=== PATIENT | female | born 1960 | race Asian ===

== ENCOUNTER 2017-06-24 00:14 | Inpatient (IN) | payer OTHER ==
[~2017-06-24] VITALS: Ht 182.9 cm; Wt 105.1 kg
[2017-06-24] MEDS ORDERED: SODIUM CHLORIDE FLUSH 10ML SYR IVF ONE (02:00)
[2017-06-24] MEDS ORDERED: SODIUM CHLORIDE 0.9% 1,000ML IVBOLUS ONE ×2 (02:00→03:00)
[2017-06-24] MEDS ORDERED: CLINDAMYCIN PMX 600MG/50ML 50 ML IVPB ONE (02:00)
[2017-06-24 02:03] LABS: HEMATOCRIT 35.5 % (34.6-47.8); HEMOGLOBIN 11.7 g/dL (11.7-16.4); WHITE BLOOD COUNT 26.3 x10^3/uL (3.4-10)
[2017-06-24] MEDS ORDERED: CLINDAMYCIN PMX 600MG/50ML 50 ML ONE (02:10)
[2017-06-24 02:14] LABS: BLOOD UREA NITROGEN 46 mg/dL (7-18)
[2017-06-24 02:18] LABS: ASPARTATE AMINO TRANSFERASE 35 U/L (15-37); DIFF TOTAL CELLS COUNTED 100 CELL DIFF
[2017-06-24 02:29] LABS: VERIFY COUNTS? YES
[2017-06-24] MEDS ORDERED: SODIUM CHLORIDE 0.9% 1,000 ML IV ONE (02:34)
[2017-06-24] MEDS ORDERED: CEFTRIAXONE PMX 1GM/50ML 50 ML ONE (02:52)
[2017-06-24] MEDS ORDERED: CEFTRIAXONE PMX 1GM/50ML 50 ML IV ONE (03:00)
[2017-06-24] MEDS ORDERED: LIDOCAINE 1%, 20ML ONE (03:12)
[2017-06-24 05:23] VITALS: BP 164/80
[2017-06-24] MEDS ORDERED: TEMAZEPAM 15 MG CAPSULE PO PRN (05:30)
[2017-06-24] MEDS: HEPARIN 5,000 UNITS/ML, 1ML SQ SCH ×3 (05:46→20:10)
[2017-06-24] MEDS: SODIUM CHLORIDE 0.9% 1,000 ML IV SCH ×3 (05:46→21:51)
[2017-06-24] MEDS: INSULIN ASPART 100 UNITS/ML, PEN SQ-INSULIN SCH ×4 (08:22→20:10)
[2017-06-24 08:32] VITALS: BP 170/73
[2017-06-24] MEDS: LACTOBACILLUS 1GM/ PACKET PO SCH ×3 (08:34→20:10)
[2017-06-24] MEDS: CLINDAMYCIN PMX 600MG/50ML 50 ML IV SCH ×2 (11:02→17:57)
[2017-06-24 14:00] VITALS: BP 143/74
[2017-06-24] MEDS ORDERED: ATOR20TA PO (16:35)
[2017-06-24] MEDS ORDERED: GLIP10TA20 PO (16:35)
[2017-06-24] MEDS ORDERED: LISI-170 PO (16:35)
[2017-06-24] MEDS: ACETAMINOPHEN 325 MG TABLET PO PRN (16:57)
[2017-06-24 19:01] VITALS: BP 145/76
[2017-06-25] MEDS: ACETAMINOPHEN 325 MG TABLET PO PRN ×2 (02:08→21:39)
[2017-06-25] MEDS: CLINDAMYCIN PMX 600MG/50ML 50 ML IV SCH ×2 (02:08→10:14)
[2017-06-25 02:46] VITALS: BP 152/79
[2017-06-25] MEDS ORDERED: CEFTRIAXONE PMX 1GM/50ML 50 ML IV SCH (03:00)
[2017-06-25 05:16] LABS: BLOOD UREA NITROGEN 41 mg/dL (7-18)
[2017-06-25 05:17] LABS: HEMATOCRIT 29.2 % (34.6-47.8); HEMOGLOBIN 9.6 g/dL (11.7-16.4); WHITE BLOOD COUNT 29.6 x10^3/uL (3.4-10)
[2017-06-25 05:21] LABS: ASPARTATE AMINO TRANSFERASE 24 U/L (15-37)
[2017-06-25 05:37] LABS: DIFF TOTAL CELLS COUNTED 100 CELL DIFF
[2017-06-25 05:39] LABS: VERIFY COUNTS? YES
[2017-06-25] MEDS: SODIUM CHLORIDE 0.9% 1,000 ML IV SCH ×2 (05:47→11:27)
[2017-06-25] MEDS: HEPARIN 5,000 UNITS/ML, 1ML SQ SCH ×3 (05:48→20:52)
[2017-06-25 06:48] VITALS: BP 158/83
[2017-06-25] MEDS: LACTOBACILLUS 1GM/ PACKET PO SCH ×3 (07:58→20:49)
[2017-06-25] MEDS: INSULIN ASPART 100 UNITS/ML, PEN SQ-INSULIN SCH ×4 (07:58→21:00)
[2017-06-25 12:15] VITALS: BP 142/70
[2017-06-25] MEDS ORDERED: VANCOMYCIN PER PHARMACY MC PRN (14:00)
[2017-06-25] MEDS ORDERED: PHARMACOKINETIC CONSULTATION MC ONE (14:30)
[2017-06-25] MEDS ORDERED: PHARMACOKINETIC MONITORING MC PRN (14:30)
[2017-06-25] MEDS: CEFTRIAXONE PMX 1GM/50ML 50 ML IV SCH (14:34)
[2017-06-25] MEDS ORDERED: VANCOMYCIN 2,000 MG in SODIUM CHLORIDE 0.9% 500 ML IV ONE (15:00)
[2017-06-25] MEDS: INSULIN DETEMIR 100 UNITS/ML, PEN SQ-INSULIN SCH (16:39)
[2017-06-25 19:12] VITALS: BP 170/75
[2017-06-26 02:24] VITALS: BP 168/81
[2017-06-26] MEDS: CEFTRIAXONE PMX 1GM/50ML 50 ML IV SCH (03:04)
[2017-06-26] MEDS: SODIUM CHLORIDE 0.9% 1,000 ML IV SCH ×3 (03:05→16:13)
[2017-06-26] MEDS: HEPARIN 5,000 UNITS/ML, 1ML SQ SCH ×3 (05:30→21:02)
[2017-06-26 05:39] LABS: HEMATOCRIT 28.4 % (34.6-47.8); HEMOGLOBIN 9.4 g/dL (11.7-16.4); WHITE BLOOD COUNT 25.4 x10^3/uL (3.4-10)
[2017-06-26 05:52] LABS: BLOOD UREA NITROGEN 38 mg/dL (7-18)
[2017-06-26 06:27] LABS: HIV 1&2 ANTIBODY SCREEN Nonreactive (Nonreactive); HIV-1 p24 ANTIGEN Nonreactive (Nonreactive)
[2017-06-26 07:22] VITALS: BP_SYST 170; BP_SYST 189; BP_DIAS 74; BP_DIAS 77
[2017-06-26] MEDS: INSULIN ASPART 100 UNITS/ML, PEN SQ-INSULIN SCH ×4 (07:35→21:03)
[2017-06-26] MEDS: INSULIN DETEMIR 100 UNITS/ML, PEN SQ-INSULIN SCH ×2 (09:11→18:14)
[2017-06-26] MEDS: LACTOBACILLUS 1GM/ PACKET PO SCH ×3 (09:13→21:02)
[2017-06-26] MEDS ORDERED: CEFTAROLINE 600 MG in SODIUM CHLORIDE 0.9% 100 ML IV SCH (12:00)
[2017-06-26] MEDS: CEFTAROLINE 400 MG in SODIUM CHLORIDE 0.9% 100 ML IV SCH (12:39)
[2017-06-26 15:34] VITALS: BP 184/80
[2017-06-26] MEDS: DOCUSATE 100 MG CAPSULE PO SCH (16:08)
[2017-06-26] MEDS: AMLODIPINE 5 MG TABLET PO SCH (16:13)
[2017-06-26] MEDS: ACETAMINOPHEN 325 MG TABLET PO PRN (18:20)
[2017-06-26 20:00] VITALS: BP_SYST 188; BP_SYST 193; BP_DIAS 75; BP_DIAS 78
[2017-06-26 20:22] VITALS: BP 188/78
[2017-06-26] MEDS: hydrALAzine 20 MG/ML, 1ML IV PRN (20:24)
[2017-06-26 21:10] VITALS: BP 182/74
[2017-06-27] MEDS: CEFTAROLINE 400 MG in SODIUM CHLORIDE 0.9% 100 ML IV SCH ×2 (00:28→12:12)
[2017-06-27 02:00] VITALS: BP 150/73
[2017-06-27 05:24] VITALS: BP 188/90
[2017-06-27] MEDS: hydrALAzine 20 MG/ML, 1ML IV PRN (05:26)
[2017-06-27] MEDS: HEPARIN 5,000 UNITS/ML, 1ML SQ SCH ×3 (05:26→21:46)
[2017-06-27 05:35] LABS: HEMATOCRIT 31.6 % (34.6-47.8); HEMOGLOBIN 10.4 g/dL (11.7-16.4); WHITE BLOOD COUNT 20.3 x10^3/uL (3.4-10)
[2017-06-27 05:55] LABS: BLOOD UREA NITROGEN 31 mg/dL (7-18)
[2017-06-27 06:12] VITALS: BP 169/78
[2017-06-27 06:32] LABS: DIFF TOTAL CELLS COUNTED 100 CELL DIFF
[2017-06-27 06:53] VITALS: BP 166/80
[2017-06-27 07:05] LABS: VERIFY COUNTS? YES
[2017-06-27] MEDS: INSULIN ASPART 100 UNITS/ML, PEN SQ-INSULIN SCH ×4 (08:18→21:00)
[2017-06-27] MEDS: INSULIN DETEMIR 100 UNITS/ML, PEN SQ-INSULIN SCH ×2 (08:19→16:49)
[2017-06-27] MEDS: SODIUM CHLORIDE 0.9% 1,000 ML IV SCH ×2 (08:21→16:00)
[2017-06-27] MEDS: LACTOBACILLUS 1GM/ PACKET PO SCH ×3 (08:21→21:43)
[2017-06-27] MEDS: AMLODIPINE 5 MG TABLET PO SCH ×2 (08:21→21:43)
[2017-06-27] MEDS: DOCUSATE 100 MG CAPSULE PO SCH ×2 (08:21→21:43)
[2017-06-27] MEDS: ACETAMINOPHEN 325 MG TABLET PO PRN (12:43)
[2017-06-27 14:26] VITALS: BP 159/83
[2017-06-27 19:25] VITALS: BP 155/67
[2017-06-28] MEDS: ACETAMINOPHEN 325 MG TABLET PO PRN ×2 (00:06→19:58)
[2017-06-28] MEDS: CEFTAROLINE 400 MG in SODIUM CHLORIDE 0.9% 100 ML IV SCH ×2 (00:07→12:51)
[2017-06-28 02:59] VITALS: BP 179/83
[2017-06-28] MEDS: hydrALAzine 20 MG/ML, 1ML IV PRN (03:34)
[2017-06-28] MEDS: HEPARIN 5,000 UNITS/ML, 1ML SQ SCH ×3 (05:47→20:00)
[2017-06-28 06:26] VITALS: BP 174/83
[2017-06-28 07:45] LABS: HEMATOCRIT 32.2 % (34.6-47.8); HEMOGLOBIN 10.6 g/dL (11.7-16.4); WHITE BLOOD COUNT 20.6 x10^3/uL (3.4-10)
[2017-06-28 07:57] LABS: BLOOD UREA NITROGEN 26 mg/dL (7-18)
[2017-06-28] MEDS: AMLODIPINE 5 MG TABLET PO SCH ×2 (09:00→19:58)
[2017-06-28] MEDS: LACTOBACILLUS 1GM/ PACKET PO SCH ×3 (09:00→19:58)
[2017-06-28] MEDS: DOCUSATE 100 MG CAPSULE PO SCH ×2 (09:00→19:58)
[2017-06-28] MEDS: INSULIN DETEMIR 100 UNITS/ML, PEN SQ-INSULIN SCH ×2 (09:29→16:22)
[2017-06-28] MEDS: INSULIN ASPART 100 UNITS/ML, PEN SQ-INSULIN SCH ×4 (09:30→20:02)
[2017-06-28 10:10] LABS: DIFF TOTAL CELLS COUNTED 100 CELL DIFF
[2017-06-28 11:03] LABS: VERIFY COUNTS? YES
[2017-06-28] MEDS: ONDANSETRON 2MG/ML, 2ML IVPush PRN (13:25)
[2017-06-28 14:30] VITALS: BP_SYST 129; BP_SYST 187; BP_DIAS 70
[2017-06-28 19:24] VITALS: BP 165/75
[2017-06-29] MEDS ORDERED: CEFTAROLINE 600 MG in SODIUM CHLORIDE 0.9% 100 ML IV SCH
[2017-06-29] MEDS: ONDANSETRON 2MG/ML, 2ML IVPush PRN (00:32)
[2017-06-29 02:58] VITALS: BP 171/75
[2017-06-29] MEDS: HEPARIN 5,000 UNITS/ML, 1ML SQ SCH ×4 (05:30→20:42)
[2017-06-29 06:15] LABS: HEMATOCRIT 32.8 % (34.6-47.8); HEMOGLOBIN 10.8 g/dL (11.7-16.4); WHITE BLOOD COUNT 20.4 x10^3/uL (3.4-10)
[2017-06-29 06:32] LABS: DIFF TOTAL CELLS COUNTED 100 CELL DIFF
[2017-06-29 06:38] LABS: BLOOD UREA NITROGEN 25 mg/dL (7-18)
[2017-06-29 06:50] LABS: VERIFY COUNTS? YES
[2017-06-29] MEDS: INSULIN ASPART 100 UNITS/ML, PEN SQ-INSULIN SCH ×4 (07:00→20:29)
[2017-06-29 07:04] VITALS: BP 171/72
[2017-06-29] MEDS: INSULIN DETEMIR 100 UNITS/ML, PEN SQ-INSULIN SCH ×2 (08:18→16:45)
[2017-06-29] MEDS: DOCUSATE 100 MG CAPSULE PO SCH ×2 (08:20→20:29)
[2017-06-29] MEDS: AMLODIPINE 5 MG TABLET PO SCH ×2 (08:20→20:29)
[2017-06-29] MEDS: LACTOBACILLUS 1GM/ PACKET PO SCH ×3 (08:20→20:29)
[2017-06-29] MEDS ORDERED: METOCLOPRAMIDE 5 MG/ML, 2ML ONE (11:59)
[2017-06-29] MEDS ORDERED: PROPOFOL 10 MG/ML, 20ML ONE (11:59)
[2017-06-29] MEDS ORDERED: ESMOLOL 100 MG/10 ML ONE (11:59)
[2017-06-29] MEDS ORDERED: ONDANSETRON 2MG/ML, 2ML ONE (11:59)
[2017-06-29] MEDS ORDERED: FENTANYL PF 100 MCG/2ML ONE (12:16)
[2017-06-29] MEDS ORDERED: ONDANSETRON 2MG/ML, 2ML IVPush PRN (12:30)
[2017-06-29] MEDS ORDERED: MEPERIDINE/PF 25MG/0.5ML IVPush PRN (12:30)
[2017-06-29] MEDS ORDERED: LABETALOL 5MG/ML, 20ML IV PRN (12:30)
[2017-06-29] MEDS ORDERED: FENTANYL PF 100 MCG/2ML IV PRN (12:30)
[2017-06-29] MEDS ORDERED: hydrALAzine 20 MG/ML, 1ML IV PRN (12:30)
[2017-06-29] MEDS ORDERED: HYDROmorphone 1 MG/ML, 1ML IV PRN (12:30)
[2017-06-29] MEDS ORDERED: PROMETHAZINE 25 MG/ML, 1ML IV PRN (12:30)
[2017-06-29] MEDS ORDERED: MIDAZOLAM 1 MG/ML, 2ML IV PRN (12:30)
[2017-06-29] MEDS ORDERED: OXYcodone 5 MG/5 ML ORAL.SOL UDC PO PRN (12:30)
[2017-06-29] MEDS ORDERED: OXYcodone 5 MG/5 ML ORAL.SOL UDC ONE (13:00)
[2017-06-29] MEDS: ACETAMINOPHEN 325 MG TABLET PO PRN (13:04)
[2017-06-29] MEDS ORDERED: LABETALOL 5MG/ML, 20ML ONE (13:13)
[2017-06-29] MEDS ORDERED: hydrALAzine 20 MG/ML, 1ML ONE (13:21)
[2017-06-29 14:22] VITALS: BP 142/61
[2017-06-29] MEDS ORDERED: morphine SULFATE 10 MG/ML, 1ML IV PRN (15:00)
[2017-06-29] MEDS ORDERED: OXYcodone/APAP 5/325MG TABLET PO PRN (15:30)
[2017-06-29] MEDS: POTASSIUM CHLORIDE 40 MEQ in D5%-0.45% NACL 1,000 ML IV SCH (16:43)
[2017-06-29] MEDS: MEROPENEM 1 GM in SODIUM CHLORIDE 0.9% 100 ML IV SCH (16:43)
[2017-06-29] MEDS: ATORVASTATIN 20 MG TABLET PO SCH (20:29)
[2017-06-29] MEDS: SODIUM CHLORIDE FLUSH 10ML SYR IVF SCH (20:43)
[2017-06-29 21:33] VITALS: BP 165/70
[2017-06-30] MEDS: MEROPENEM 1 GM in SODIUM CHLORIDE 0.9% 100 ML IV SCH ×3 (00:37→16:00)
[2017-06-30 00:50] VITALS: BP 153/96
[2017-06-30] MEDS: ACETAMINOPHEN 325 MG TABLET PO PRN ×2 (02:00→09:35)
[2017-06-30] MEDS: POTASSIUM CHLORIDE 40 MEQ in D5%-0.45% NACL 1,000 ML IV SCH ×3 (02:03→20:11)
[2017-06-30 05:42] LABS: HEMATOCRIT 28.2 % (34.6-47.8); HEMOGLOBIN 9.3 g/dL (11.7-16.4); WHITE BLOOD COUNT 16.6 x10^3/uL (3.4-10)
[2017-06-30] MEDS: HEPARIN 5,000 UNITS/ML, 1ML SQ SCH ×3 (05:44→20:11)
[2017-06-30 05:53] LABS: ASPARTATE AMINO TRANSFERASE 27 U/L (15-37); BLOOD UREA NITROGEN 24 mg/dL (7-18)
[2017-06-30 06:45] VITALS: BP 147/67
[2017-06-30] MEDS: INSULIN DETEMIR 100 UNITS/ML, PEN SQ-INSULIN SCH ×2 (08:00→16:38)
[2017-06-30] MEDS: SODIUM CHLORIDE FLUSH 10ML SYR IVF SCH ×2 (09:00→20:34)
[2017-06-30] MEDS: AMLODIPINE 5 MG TABLET PO SCH ×2 (09:35→20:11)
[2017-06-30] MEDS: LACTOBACILLUS 1GM/ PACKET PO SCH ×3 (09:35→20:11)
[2017-06-30] MEDS: DOCUSATE 100 MG CAPSULE PO SCH ×2 (09:35→20:34)
[2017-06-30] MEDS: INSULIN ASPART 100 UNITS/ML, PEN SQ-INSULIN SCH ×4 (09:36→20:03)
[2017-06-30 15:52] VITALS: BP 163/76
[2017-06-30] MEDS: POLYETHYLENE GLYCOL 17 GM PACKET NG SCH (17:50)
[2017-06-30 18:22] VITALS: BP 156/75
[2017-06-30] MEDS: ATORVASTATIN 20 MG TABLET PO SCH (20:11)
[2017-07-01] MEDS: MEROPENEM 1 GM in SODIUM CHLORIDE 0.9% 100 ML IV SCH ×2 (00:28→08:13)
[2017-07-01 01:41] VITALS: BP 171/75
[2017-07-01] MEDS: POTASSIUM CHLORIDE 40 MEQ in D5%-0.45% NACL 1,000 ML IV SCH (04:33)
[2017-07-01] MEDS: HEPARIN 5,000 UNITS/ML, 1ML SQ SCH ×3 (05:16→23:14)
[2017-07-01] MEDS: ACETAMINOPHEN 325 MG TABLET PO PRN ×2 (05:16→17:00)
[2017-07-01 05:46] LABS: HEMATOCRIT 28.3 % (34.6-47.8); HEMOGLOBIN 10.1 g/dL (11.7-16.4)
[2017-07-01 06:03] LABS: BLOOD UREA NITROGEN 17 mg/dL (7-18)
[2017-07-01 06:07] LABS: ASPARTATE AMINO TRANSFERASE 24 U/L (15-37)
[2017-07-01 06:55] VITALS: BP 181/79
[2017-07-01] MEDS: AMLODIPINE 5 MG TABLET PO SCH ×2 (08:12→20:47)
[2017-07-01] MEDS: POLYETHYLENE GLYCOL 17 GM PACKET NG SCH (08:12)
[2017-07-01] MEDS: DOCUSATE 100 MG CAPSULE PO SCH ×2 (08:12→20:47)
[2017-07-01] MEDS: LACTOBACILLUS 1GM/ PACKET PO SCH ×3 (08:13→23:14)
[2017-07-01] MEDS: INSULIN ASPART 100 UNITS/ML, PEN SQ-INSULIN SCH ×4 (08:13→20:57)
[2017-07-01] MEDS: INSULIN DETEMIR 100 UNITS/ML, PEN SQ-INSULIN SCH ×2 (08:14→17:00)
[2017-07-01] MEDS: SODIUM CHLORIDE FLUSH 10ML SYR IVF SCH ×2 (08:36→20:47)
[2017-07-01 10:06] VITALS: BP 147/70
[2017-07-01 13:57] VITALS: BP 166/69
[2017-07-01] MEDS: AMPICILLIN/SULBACTAM 3 GM in SODIUM CHLORIDE 0.9% 100 ML IV SCH ×2 (14:14→20:46)
[2017-07-01] MEDS ORDERED: TEMAZEPAM 15 MG CAPSULE PO PRN (19:30)
[2017-07-01] MEDS: ATORVASTATIN 20 MG TABLET PO SCH (20:47)
[2017-07-01 21:11] VITALS: BP 172/80
[2017-07-02 01:54] VITALS: BP 175/87
[2017-07-02] MEDS: ACETAMINOPHEN 325 MG TABLET PO PRN ×4 (01:58→21:44)
[2017-07-02] MEDS: hydrALAzine 20 MG/ML, 1ML IV PRN (01:58)
[2017-07-02] MEDS: AMPICILLIN/SULBACTAM 3 GM in SODIUM CHLORIDE 0.9% 100 ML IV SCH ×3 (05:08→21:44)
[2017-07-02 05:21] LABS: HEMATOCRIT 27.2 % (34.6-47.8); HEMOGLOBIN 8.9 g/dL (11.7-16.4); WHITE BLOOD COUNT 14.6 x10^3/uL (3.4-10)
[2017-07-02] MEDS: HEPARIN 5,000 UNITS/ML, 1ML SQ SCH ×3 (05:48→23:01)
[2017-07-02 06:03] LABS: ASPARTATE AMINO TRANSFERASE 22 U/L (15-37); BLOOD UREA NITROGEN 16 mg/dL (7-18)
[2017-07-02] MEDS: INSULIN ASPART 100 UNITS/ML, PEN SQ-INSULIN SCH ×4 (07:30→21:00)
[2017-07-02 07:35] VITALS: BP 151/79
[2017-07-02] MEDS: DOCUSATE 100 MG CAPSULE PO SCH ×2 (07:44→21:43)
[2017-07-02] MEDS: INSULIN DETEMIR 100 UNITS/ML, PEN SQ-INSULIN SCH ×2 (07:44→16:45)
[2017-07-02] MEDS: SODIUM CHLORIDE FLUSH 10ML SYR IVF SCH ×2 (07:44→21:44)
[2017-07-02] MEDS: AMLODIPINE 5 MG TABLET PO SCH ×2 (07:44→21:43)
[2017-07-02] MEDS: LACTOBACILLUS 1GM/ PACKET PO SCH ×3 (07:44→21:44)
[2017-07-02] MEDS: POLYETHYLENE GLYCOL 17 GM PACKET NG SCH (07:44)
[2017-07-02 14:45] VITALS: BP 125/76
[2017-07-02 18:42] VITALS: BP 172/82
[2017-07-02] MEDS: ATORVASTATIN 20 MG TABLET PO SCH (21:43)
[2017-07-03 01:35] VITALS: BP 142/66
[2017-07-03] MEDS: ACETAMINOPHEN 325 MG TABLET PO PRN ×2 (05:18→19:48)
[2017-07-03] MEDS: AMPICILLIN/SULBACTAM 3 GM in SODIUM CHLORIDE 0.9% 100 ML IV SCH ×2 (05:18→13:20)
[2017-07-03] MEDS: HEPARIN 5,000 UNITS/ML, 1ML SQ SCH ×3 (05:19→21:02)
[2017-07-03] MEDS: INSULIN ASPART 100 UNITS/ML, PEN SQ-INSULIN SCH ×4 (07:00→19:49)
[2017-07-03 07:19] VITALS: BP 118/83
[2017-07-03] MEDS: SODIUM CHLORIDE FLUSH 10ML SYR IVF SCH ×2 (09:00→21:03)
[2017-07-03] MEDS: POLYETHYLENE GLYCOL 17 GM PACKET NG SCH (09:56)
[2017-07-03] MEDS: DOCUSATE 100 MG CAPSULE PO SCH ×2 (09:56→19:48)
[2017-07-03] MEDS: AMLODIPINE 5 MG TABLET PO SCH ×2 (09:56→19:48)
[2017-07-03] MEDS: LACTOBACILLUS 1GM/ PACKET PO SCH ×3 (09:56→19:48)
[2017-07-03] MEDS: INSULIN DETEMIR 100 UNITS/ML, PEN SQ-INSULIN SCH ×2 (09:57→17:45)
[2017-07-03] MEDS ORDERED: INSU100I28 SQ-INSULIN (11:49)
[2017-07-03] MEDS ORDERED: INSU100I18 SQ-INSULIN (11:49)
[2017-07-03] MEDS ORDERED: AMLO5TAB2 PO (11:49)
[2017-07-03] MEDS ORDERED: ACID1GRA2 PO (11:49)
[2017-07-03 13:47] VITALS: BP 137/82
[2017-07-03] MEDS: ERTAPENEM 1 GM in SODIUM CHLORIDE 0.9% 50 ML IV SCH (17:38)
[2017-07-03 18:36] VITALS: BP 188/82
[2017-07-03] MEDS: ATORVASTATIN 20 MG TABLET PO SCH (19:48)
[2017-07-04 01:42] VITALS: BP 144/72
[2017-07-04] MEDS: HEPARIN 5,000 UNITS/ML, 1ML SQ SCH (06:28)
[2017-07-04] MEDS: INSULIN ASPART 100 UNITS/ML, PEN SQ-INSULIN SCH ×2 (07:00→11:00)
[2017-07-04 07:01] VITALS: BP 196/91
[2017-07-04 07:14] VITALS: BP 202/83
[2017-07-04] MEDS: hydrALAzine 20 MG/ML, 1ML IV PRN (07:15)
[2017-07-04] MEDS: POLYETHYLENE GLYCOL 17 GM PACKET NG SCH (08:12)
[2017-07-04] MEDS: SODIUM CHLORIDE FLUSH 10ML SYR IVF SCH (08:12)
[2017-07-04] MEDS: INSULIN DETEMIR 100 UNITS/ML, PEN SQ-INSULIN SCH (08:12)
[2017-07-04] MEDS: DOCUSATE 100 MG CAPSULE PO SCH (08:12)
[2017-07-04] MEDS: AMLODIPINE 5 MG TABLET PO SCH (08:12)
[2017-07-04] MEDS: LACTOBACILLUS 1GM/ PACKET PO SCH (08:12)
[2017-07-04 08:13] VITALS: BP 162/75
[2017-07-04] MEDS: ERTAPENEM 1 GM in SODIUM CHLORIDE 0.9% 50 ML IV SCH (13:30)
== END 2017-07-04 14:38 | disposition home or self-care (01) | DRG 853 ==
LOC: ED 02:41 → EDIP 02:50 → 3NE 04:48
PROVIDERS: ADMIT Internal Medicine
PROC: 0JB80ZZ Excision of Abdomen Subcutaneous Tissue and Fascia, Open Approach (ICD-10-PCS; principal; 2017-06-29 12:00)
PROC: 02HV33Z Insertion of Infusion Device into Superior Vena Cava, Percutaneous Approach (ICD-10-PCS; 2017-07-03)
PROC: B548ZZA Ultrasonography of Superior Vena Cava, Guidance (ICD-10-PCS; 2017-07-03)
DX: A41.01 Sepsis due to Methicillin susceptible Staphylococcus aureus (principal); E43 Unspecified severe protein-calorie malnutrition; I26.90 Septic pulmonary embolism without acute cor pulmonale; L02.211 Cutaneous abscess of abdominal wall; N17.9 Acute kidney failure, unspecified; N39.0 Urinary tract infection, site not specified; L03.311 Cellulitis of abdominal wall; E87.1 Hypo-osmolality and hyponatremia; E11.21 Type 2 diabetes mellitus with diabetic nephropathy; E11.22 Type 2 diabetes mellitus with diabetic chronic kidney disease; I12.9 Hypertensive chronic kidney disease with stage 1 through stage 4 chronic kidney disease, or unspecified chronic kidney disease; E87.5 Hyperkalemia; N18.9 Chronic kidney disease, unspecified; B96.20 Unspecified Escherichia coli [E. coli] as the cause of diseases classified elsewhere; Z98.42 Cataract extraction status, left eye; Z98.41 Cataract extraction status, right eye; Z68.31 Body mass index [BMI] 31.0-31.9, adult
CPT/HCPCS: 10060; 36415; 36569; 71010; 74176; 76705; 76937; 77001; 80048; 80053; 80074; 81001; 82306; 82962; 83036; 83605; 83735; 84145; 84443; 85025; 85651; 86140; 86703; 87040; 87070; 87075; 87077; 87086; 87150; 87186; 87205; 87899; 88304; 88307; 93005; 93306; 96361; 96365; J0295; J0696; J0712; J1335; J1644; J1815; J2185; J2405; J2704; J3010; J3370; J3480; C1751; G0435; J0360; J2270; J2765; J7030; J7040

== ENCOUNTER 2019-07-05 11:19 | Inpatient (IN) | payer BC, OTHER ==
[~2019-07-05] VITALS: Ht 170.2 cm; Wt 100.9 kg
[2019-07-10 17:23] VITALS: BP 165/74
== END 2019-07-10 18:07 | disposition home or self-care (01) | DRG 673 ==
LOC: ED 11:50 → EDBD 12:58 → EDIP 12:58 → 4EST 14:41 → 4WST 07-06 17:07
PROVIDERS: ADMIT Internal Medicine; ATTEND Internal Medicine
PROC: 0T9B70Z Drainage of Bladder with Drainage Device, Via Natural or Artificial Opening (ICD-10-PCS; principal; 2019-07-05)
PROC: 0JH63XZ Insertion of Tunneled Vascular Access Device into Chest Subcutaneous Tissue and Fascia, Percutaneous Approach (ICD-10-PCS; 2019-07-05)
PROC: 02HV33Z Insertion of Infusion Device into Superior Vena Cava, Percutaneous Approach (ICD-10-PCS; 2019-07-05)
PROC: B5181ZA Fluoroscopy of Superior Vena Cava using Low Osmolar Contrast, Guidance (ICD-10-PCS; 2019-07-05)
PROC: B548ZZA Ultrasonography of Superior Vena Cava, Guidance (ICD-10-PCS; 2019-07-05)
PROC: 5A1D70Z Performance of Urinary Filtration, Intermittent, Less than 6 Hours Per Day (ICD-10-PCS; 2019-07-05)
PROC: 5A1D70Z Performance of Urinary Filtration, Intermittent, Less than 6 Hours Per Day (ICD-10-PCS; 2019-07-06)
PROC: 5A1D70Z Performance of Urinary Filtration, Intermittent, Less than 6 Hours Per Day (ICD-10-PCS; 2019-07-07)
PROC: 5A1D70Z Performance of Urinary Filtration, Intermittent, Less than 6 Hours Per Day (ICD-10-PCS; 2019-07-08)
DX: N17.9 Acute kidney failure, unspecified (principal); I50.31 Acute diastolic (congestive) heart failure; I13.2 Hypertensive heart and chronic kidney disease with heart failure and with stage 5 chronic kidney disease, or end stage renal disease; D68.59 Other primary thrombophilia; E87.1 Hypo-osmolality and hyponatremia; E87.2 Acidosis; N39.0 Urinary tract infection, site not specified; I48.92 Unspecified atrial flutter; I42.9 Cardiomyopathy, unspecified; N18.6 End stage renal disease; I48.0 Paroxysmal atrial fibrillation; D63.1 Anemia in chronic kidney disease; E11.21 Type 2 diabetes mellitus with diabetic nephropathy; E11.22 Type 2 diabetes mellitus with diabetic chronic kidney disease; E66.9 Obesity, unspecified; Z68.34 Body mass index [BMI] 34.0-34.9, adult; E78.5 Hyperlipidemia, unspecified; E83.39 Other disorders of phosphorus metabolism; E83.51 Hypocalcemia; E87.5 Hyperkalemia; I07.1 Rheumatic tricuspid insufficiency; I27.20 Pulmonary hypertension, unspecified; J40 Bronchitis, not specified as acute or chronic; N25.0 Renal osteodystrophy; Z79.899 Other long term (current) drug therapy; Z86.19 Personal history of other infectious and parasitic diseases; Z87.891 Personal history of nicotine dependence; Z99.2 Dependence on renal dialysis; G47.00 Insomnia, unspecified
CPT/HCPCS: 36415; 77001; 93017; J3490; 0399T; 36558; 71045; 76770; 76937; 78452; 80048; 80053; 80061; 81001; 82306; 82310; 82330; 82570; 82962; 83036; 83540; 83550; 83605; 83735; 83880; 83970; 84100; 84300; 84439; 84443; 84484; 85025; 85610; 86480; 86705; 86706; 86803; 87040; 87086; 87340; 90935; 93005; 93306; 99156; 99157; G0378; J0690; J0882; J1644; J2250; J2405; J2785; J3010; A9502; C1750; C9898; G0365; J0360; J1642; J2310; J7030